=== PATIENT | male | born 1970 | race Caucasian/White ===

== ENCOUNTER 2024-09-06 08:23 | Outpatient (CLI) | payer BC, SELFPAY | END 2024-09-06 08:24 | disposition home or self-care (01) | PROVIDERS: PCP Family Medicine; Visit Provider Family Medicine | DX: Z00.00 Encounter for general adult medical examination without abnormal findings (principal); E78.5 Hyperlipidemia, unspecified; Z12.5 Encounter for screening for malignant neoplasm of prostate; Z13.1 Encounter for screening for diabetes mellitus; Z80.6 Family history of leukemia; Z13.89 Encounter for screening for other disorder | CPT/HCPCS: 80053; 80061; G0103 ==

== ENCOUNTER 2025-03-15 09:52 | Outpatient (CLI) | payer BC, SELFPAY ==
[2025-03-15 14:56] LABS: Chlamydia DNA Amplified* NOT DETECTED (No Detected); GC DNA Amplified* NOT DETECTED (No Detected)
== END 2025-03-15 09:53 | disposition home or self-care (01) ==
LOC: LKVREF 09:52
PROVIDERS: PCP Family Medicine; Visit Provider Emergency Medicine
DX: N34.2 Other urethritis (principal); Z11.3 Encounter for screening for infections with a predominantly sexual mode of transmission
CPT/HCPCS: 87491; 87591